=== PATIENT | male | born 1975 | race African-American/Black ===

== ENCOUNTER → 2018-07-01 | Outpatient (CLI) | payer OTHER ==
[~2018-07-01] VITALS: Ht 175.3 cm; Wt 98.0 kg
[~2018-07-01] MED LIST: LIPITOR 20 MG T20 M1 PO; LOPRESSOR50 PO; METFORMIN HCL500 MG PO; MOBIC7.5 MG PO; NEURONTIN 300300 M1 PO; NORCO 5-325 TA1 EACH PO; OMEPRAZOLE20 M2 PO
[2018-07-01 09:12] LABS: HEMATOCRIT 44.8 % (42.0-52.0); HEMOGLOBIN 15.5 gm/dL (14.0-18.0); MCH 30.1 pg (26.0-34.0); MCHC 34.5 g/dL (28.0-37.0); RBC 5.15 mil/uL (4.50-6.00); RDW 13.6 % (10.5-14.5); WBC 7.1 thou/uL (4.0-11.0)
[2018-07-01 09:14] VITALS: BP 117/77
[2018-07-01 09:16] LABS: ANION GAP 6 mmol/L (7-16); BUN 11 mg/dL (7-18); CALCIUM 9.4 mg/dL (8.5-10.1); CHLORIDE 102 mmol/L (98-107); CO2 29 mmol/L (21-32); GLUCOSE 116 mg/dL (74-106); POTASSIUM 4.3 mmol/L (3.5-5.1); SODIUM 137 mmol/L (136-145)
[2018-07-01 09:21] LABS: CHOLESTEROL 175 mg/dL (<200); HDL CHOLESTEROL 25 mg/dL (>40); LDL CHOLESTEROL 130 mg/dL (<100); TRIGLYCERIDE 102 mg/dL (<150); VLDL 20 mg/dL (<40)
--- NOTE | 2018-07-01 14:28 | NUR ---
PT DC'D AND TAKEN OUTSIDE BY VOLUNTEER. VOLUNTEER CAME BACK AND REPORTED THAT PT WALKED OUTSIDE TO HIS CAR AND SAID THE DOES NOT KNOW HOW TO DRIVE AND THE PT WILL BE DRIVING HOME. DC INSTRUCTIONS REVIEWED WITH PT BEFORE PT LEFT AND PT V/U.
--- NOTE | 2018-07-01 17:35 | CATHLAB ---
[facility] [employer] [place] [address] INVASIVE PROCEDURE REPORT Name: PREM ACOSTA [facility] [id number] ������������� Admission: 07/01/18 ������������� Attend Phys: Alpesh Walter MD Discharge: ��� ������������� ��� Date of : 73 Date of Service: 07/01/18 1735 �� Report #: [id number] �������� ��������������������������������������������[id number] THIS REPORT FOR: //name// APPROVED REPORT Study performed: 07/01/2018 10:45:19 Patient Details Patient Status: Out-Patient Room #: The patient is a 42 year-old male Event Personnel Alpesh Walter Materials Handler, Fermin Smith RN Medical Claims Analyst, Raul Wallace RT(R)(CV) Monitor, Wilfredo Kelly Monitor, Janessa Noriega RTR, CENTRAL OFFICE TECHNICIAN Scrub Procedures Performed Left Heart Cath w/or w/o Coronaries [id number] [facility] Indication Dyspnea, Positive stress test, Chest pain Risk Factors Hypercholesterolemia, Coronary Artery DiseaseHypertension Procedure Narrative The Right Groin^ was infiltrated with 1% Lidocaine subcutaneous anesthesia. A PINNACLE 4FR Sheath #[id number] sheath was inserted into the RFA^. Coronary angiography was performed using coronary diagnostic catheters. The right coronary system was accessed and visualized with a JR4 catheter. The left coronary system was accessed and visualized with a JL4 catheter. The left ventricle was accessed and visualized with a PIGTAIL catheter. Left ventricular/Aortic Valve gradient assessed via catheter pullback. There was no hematoma. Intraoperative Conscious Sedation Sedation start time: 11.22 Case end Time: 11 Fentanyl 50 mcg Versed 1 mg Fluoro Time: 2.00 minutes Dose: DAP 3640.00 cGycm2 460 mGy Contrast Type and Amount: Omnipaque 75 ml Coronary Angiography [facility] [address] [place] [address] INVASIVE PROCEDURE REPORT Name: PREM ACOSTA Room #: REG [facility]#: [id number] ������������� Admission: 07/01/18 ������������� Attend Phys: Alpesh Walter MD Discharge: ��� ������������� ��� Date of : 73 Date of Service: 07/01/18 1735 �� Report #: [id number] �������� ��������������������������������������������[id number] The patient's coronary anatomy is left dominant. Diagnostic Cath Left Main This is a large caliber vessel, patent with no flow-limiting lesions. LAD This is a moderate to large caliber vessel in the proximal segment, mildly ectatic. There is mild diffuse disease in the mid segment. The distal LAD wraps around the apex and terminates in the mid inferior wall. Diagonal 1 This is small to moderate size caliber vessel, patent with no flow-limiting lesions. Circumflex This is a dominant vessel, with a moderate stenosis in the proximal segment, 40-50%. OM1 This is a small-caliber vessel, has a high takeoff from the left circumflex artery. This vessel is occluded in the proximal segment. The distal segment of this vessel is filled via collateral circulation from a diagonal artery. OM2 This is a moderate size caliber vessel, with moderate disease in the proximal segment, 50%. OM3 There is a patent vessel, with no flow-limiting lesions. L PDA There is a patent vessel, with no flow-limiting lesions. Right Coronary This is a small-caliber vessel, patent with no flow-limiting lesions. Left Ventriculography The left ventricle is normal in size with normal contractility. The left ventricular ejection fraction is estimated to be >55%. Hemodynamics The aortic pressure is 115/78 mmHg with a mean of 61 mmHg. The left ventricular pressure is 107/7 mmHg with a mean of mmHg. The left ventricular end diastolic pressure is 17 mmHg. Conclusion 1. 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 2. 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 3. Mild disease in the mid LAD. 4. Normal LV systolic function. 5. Recommend aggressive risk factor management. ��������������������������������������������� <ELECTRONICALLY SIGNED> ���������������������������������������� By: Alpesh Walter MD ��������������������������������������������� 07/01/18 1735 1735 [id number] Alpesh Walter MD /INF
--- NOTE | 2018-07-02 13:54 | EKG ---
[address] [address] ELECTROCARDIOGRAM REPORT Name: ACOSTAPREM ANDERSON Room #: REG [facility] [id number] ������������������ Admission: 07/01/18 ������������������ Attend Phys: Alpesh Walter MD Discharge: ������������������ Date of : 73 Report #: [id number] ����������������������������������������������������������������� [id number] THIS REPORT FOR: //name// [facility] Test Date: 2018-07-01 Test Time: 08:54:48 Pat Name: PREM ACOSTA Department: Room: Gender: Malter Operator: Carmen OLIVA : 1975 Requested By: Alpesh Walter Order Number: [id number] MD: Dino Carrillo Measurements Intervals [place] Rate: 76 P: 52 IN: 169 QRS: 42 QRSD: 85 T: 59 QT: 364 QTc: 410 Interpretive Statements Sinus rhythm Minimal ST elevation, inferior leads No previous ECG available for comparison Electronically Signed On 07-02-2018 13:54:11 CDT by Dino Carrillo [email or web address] ��������������������������������������������� <ELECTRONICALLY SIGNED> ���������������������������������������� By: Dino Carrillo MD ��������������������������������������������� 07/02/18 [id number] [id number] 3 MD JULIO Patel
== END | disposition home or self-care (01) ==
LOC: CATH 08:33
PROVIDERS: Internal Medicine Cardiovascular Disease
DX: R07.9 Chest pain, unspecified (principal); R06.00 Dyspnea, unspecified; E11.42 Type 2 diabetes mellitus with diabetic polyneuropathy; E78.00 Pure hypercholesterolemia, unspecified; K21.9 Gastro-esophageal reflux disease without esophagitis; I11.0 Hypertensive heart disease with heart failure; I50.9 Heart failure, unspecified; G47.30 Sleep apnea, unspecified; Z86.718 Personal history of other venous thrombosis and embolism; Z85.118 Personal history of other malignant neoplasm of bronchus and lung; Z98.890 Other specified postprocedural states; Z79.84 Long term (current) use of oral hypoglycemic drugs; Z87.891 Personal history of nicotine dependence; Z88.8 Allergy status to other drugs, medicaments and biological substances; Z79.899 Other long term (current) drug therapy